=== PATIENT | male | born 2000 | race Hispanic/Latino ===

== ENCOUNTER 2022-07-27 16:22 | Emergency (ER) | payer OTHER ==
[~2022-07-27] VITALS: Ht 162.6 cm; Wt 65.3 kg
[2022-07-27] MEDS ORDERED: CEFTRIAXONE 1G VIAL IM ONE (17:00)
[2022-07-27] MEDS ORDERED: AZITHROMYCIN 250 MG TABLET PO ONE (17:00)
[2022-07-27 18:51] VITALS: BP 118/52
[2022-07-27 18:54] LABS: APPEARANCE,URINE TURBID (CLEAR); BILIRUBIN,URINE NEGATIVE (NEGATIVE); COLOR,URINE YELLOW (YELLOW); GLUCOSE, URINE (UA) NEGATIVE (NEGATIVE); KETONES,URINE NEGATIVE (NEGATIVE); LEUKOCYTE ESTERASE ,URINE 500 Leu/uL (NEGATIVE); NITRATE,URINE NEGATIVE (NEGATIVE); OCCULT BLOOD,URINE LARGE (NEGATIVE); PROTEIN,URINE 100 mg/dL (NEGATIVE); UROBILINOGEN,URINE 0.2 mg/dL (0.2-1.0)
[2022-07-27 19:06] LABS: BACTERIA,URINE MOD /HPF (None Seen); MUCUS,URINE MOD LPF (None Seen); RBC,URINE TNTC /HPF (0-1); SQUAMOUS EPITHELIAL CELL,UR RARE /HPF (0-2); WBC,URINE TNTC /HPF (0-1)
[2022-07-27] MEDS ORDERED: SULF1TAB42 PO (20:17)
== END 2022-07-27 20:21 | disposition home or self-care (01) ==
LOC: EDH 16:22
DX: A64 Unspecified sexually transmitted disease (principal); Z98.890 Other specified postprocedural states; Z88.0 Allergy status to penicillin
CPT/HCPCS: 99283; 87088; 81001; 96372; J0696